=== PATIENT | male | born 1945 | race Caucasian/White ===

== ENCOUNTER 2024-07-16 22:59 | Inpatient (IN) | payer MEDICARE ==
[~2024-07-16] VITALS: Ht 180.3 cm; Wt 115.2 kg
[2024-07-16] MEDS ORDERED: TEMAZEPAM 7.5 MG CAPSULE PO PRN (23:30)
[2024-07-16] MEDS ORDERED: LORAZEPAM 0.5 MG TABLET PO PRN (23:30)
[2024-07-16] MEDS ORDERED: MAGNESIUM HYDROXIDE 30 ML UDC PO PRN (23:30)
[2024-07-16] MEDS: BLOOD SUGAR DIAGNOSTIC 1 EACH STRIP IN ONE (23:45)
[2024-07-17 00:14] VITALS: BP 142/98; TEMP 98.2; O2SAT 95
[2024-07-17] MEDS ORDERED: ESCI5TAB PO (01:13)
[2024-07-17] MEDS ORDERED: ENOX40DI SQ (01:13)
[2024-07-17] MEDS ORDERED: ALLA266C2 TP (01:13)
[2024-07-17] MEDS ORDERED: AMOX500C2 PO (01:13)
[2024-07-17] MEDS ORDERED: CLON0.1T PO (01:13)
[2024-07-17] MEDS ORDERED: CLOT45CR33 TP (01:13)
[2024-07-17] MEDS ORDERED: AMOXICILLIN TRIHYDRATE 500 MG CAPSULE PO SCH (07:00)
[2024-07-17 07:44] LABS: ALBUMIN 3.3 g/dL (3.4-5.0); BILIRUBIN,TOTAL 0.4 mg/dL (0.2-1.0); CALCIUM, SERUM 9.6 mg/dL (8.5-10.1); CREATININE 1.4 mg/dL (0.6-1.3); POTASSIUM 3.7 mmol/L (3.5-5.1); TOTAL PROTEIN, SERUM 6.8 g/dL (6.4-8.2)
[2024-07-17 07:46] LABS: CHOLESTEROL 195 mg/dL (<200); HDL CHOLESTEROL 33 mg/dL (40-60); LDL 139 mg/dL (0-99); TRIGLYCERIDES 168 mg/dL (30-150)
[2024-07-17] MEDS: CLONIDINE HCL 0.1 MG TABLET PO PRN (07:56)
[2024-07-17 08:00] VITALS: BP 188/134; TEMP 97.9; O2SAT 95
[2024-07-17] MEDS ORDERED: CLOTRIMAZOLE TOP SCH (09:00)
[2024-07-17] MEDS ORDERED: VAG TOP SCH (09:00)
[2024-07-17] MEDS: ENOXAPARIN SODIUM 40 MG/0.4 ML DISP.SYRIN SQ SCH (10:07)
[2024-07-17] MEDS: AMOXICILLIN TRIHYDRATE 250 MG CAPSULE PO SCH (13:31)
[2024-07-17 16:00] VITALS: BP 119/98; TEMP 98; O2SAT 96
[2024-07-17 20:00] VITALS: BP 151/93; TEMP 98.3; O2SAT 96
[2024-07-18 08:00] VITALS: BP 133/109; TEMP 98; O2SAT 96
[2024-07-18] MEDS: ESCITALOPRAM OXALATE (10 MG) 10 MG TABLET PO SCH (08:49)
[2024-07-18 16:00] VITALS: BP 122/100; TEMP 97.9; O2SAT 96
[2024-07-18] MEDS: LORAZEPAM 0.5 MG TABLET PO PRN (18:54)
[2024-07-18 19:54] VITALS: BP 137/90; TEMP 98.2; O2SAT 96
[2024-07-18] MEDS: DIVALPROEX SODIUM 125 MG TABLET.DR PO SCH (20:03)
[2024-07-19 07:04] LABS: BASOPHILS # (AUTO) 0.1 K/uL (0.0-0.2); BASOPHILS % (AUTO) 0.7 % (0.0-2.0); EOSINOPHILS # (AUTO) 0.1 K/uL (0.0-0.7); EOSINOPHILS % (AUTO) 0.7 % (0.0-6.0); HEMATOCRIT 43 % (39-51); HEMOGLOBIN 14.5 g/dL (13.5-17.5); LYMPHOCYTES # (AUTO) 1.5 K/uL (0.8-4.8); LYMPHOCYTES % (AUTO) 10.1 % (20.0-44.0); MEAN CORPUSCULAR HEMOGLOBIN 33 PG (26.0-33.0); MEAN CORPUSCULAR HGB CONC 34 g/dl (31.0-36.0); MEAN CORPUSCULAR VOLUME 98 fL (80-96); MONOCYTES # (AUTO) 1.7 K/uL (0.1-1.30); NEUTROPHILS # (AUTO) 11.7 K/uL (1.8-8.9); NEUTROPHILS % (AUTO) 77.5 % (43.0-81.0); PLATELET COUNT (AUTO) 280 K/uL (150-450); RED BLOOD CELL COUNT(AUTO) 4.39 MIL/uL (4.5-6.0); RED CELL DISTRIBUTION WIDTH 13.7 % (11.5-15.0)
[2024-07-19 08:00] VITALS: BP 168/95; TEMP 98.9; O2SAT 94
[2024-07-19 15:12] LABS: APPEARANCE,URINE CLOUDY (CLEAR); BILIRUBIN,URINE NEGATIVE (NEGATIVE); BLOOD, URINE NEGATIVE Ery/uL (NEGATIVE); COLOR,URINE YELLOW (YELLOW); CREATININE, URINE 170.1 MG/DL (30.0-125.0); KETONES,URINE NEGATIVE (NEGATIVE); LEUKOCYTE ESTERASE ,URINE NEGATIVE (NEGATIVE); NITRITE, URINE NEGATIVE (NEGATIVE); PH,URINE 5.5 (5.0-8.0); PROTEIN,URINE 1+ mg/dl (NEGATIVE); UGLUCOSE NEGATIVE (NEGATIVE); URINE TOTAL PROTEIN 65.7 mg/dL (0-11.9); UROBILINOGEN,URINE 0.2 EU/dL (0.2)
[2024-07-19 15:45] LABS: ADD URINE CULTURE NO; BACTERIA,URINE None seen /HPF (None Seen); RBC,URINE 0-2 /HPF (0-2); WBC,URINE 0-2 /HPF (0-3)
[2024-07-19 15:46] LABS: SQUAMOUS EPITHELIAL CELL,UR 0-2 /HPF (None Seen); URIC ACID CRYSTALS,URINE Moderate /HPF (None Seen); URINE AMORPHOUS URATE Moderate /HPF (None Seen)
[2024-07-19 16:00] VITALS: BP 198/88; TEMP 97.9; O2SAT 96
[2024-07-19 16:41] LABS: EOSINOPHIL,URINE None Seen
[2024-07-19 20:28] VITALS: BP 145/99; TEMP 98.1; O2SAT 96
[2024-07-20 08:00] VITALS: BP 150/99; TEMP 97.7; O2SAT 94
[2024-07-20 16:00] VITALS: BP 181/93; TEMP 97.9; O2SAT 95
[2024-07-20] MEDS ORDERED: VALS1TAB7 PO (17:19)
[2024-07-20] MEDS ORDERED: TERA5CAP4 PO (17:19)
[2024-07-20] MEDS ORDERED: ATOR40TA PO (17:19)
[2024-07-20] MEDS ORDERED: ASCO100058 PO (17:19)
[2024-07-20] MEDS ORDERED: CHOL500062 PO (17:19)
[2024-07-20] MEDS ORDERED: FERR-68 PO (17:19)
[2024-07-20] MEDS ORDERED: BISO1TAB35 PO (17:19)
[2024-07-20] MEDS ORDERED: ZINC50TA69 PO (17:19)
[2024-07-20] MEDS ORDERED: ACYC400T19 PO (17:19)
[2024-07-20 20:56] VITALS: BP 154/98; TEMP 98; O2SAT 96
[2024-07-20] MEDS: ACYCLOVIR 200 MG CAPSULE PO SCH (21:00)
[2024-07-20] MEDS: FERROUS SULFATE (325 MG) 325 MG/TAB TABLET PO SCH (21:01)
[2024-07-20] MEDS: ATORVASTATIN 40 MG TABLET PO SCH (21:01)
[2024-07-21] MEDS: CHOLECALCIFEROL 1,000 UNIT TABLET (VIT D3) PO SCH (08:14)
[2024-07-21] MEDS: ASCORBIC ACID 500 MG TABLET PO SCH (08:14)
[2024-07-21] MEDS: ZINC SULFATE 220 MG CAPSULE PO SCH (08:15)
[2024-07-21] MEDS ORDERED: VALSARTAN 40 MG TABLET PO SCH (12:00)
[2024-07-21] MEDS: DIVALPROEX SODIUM 125 MG TABLET.DR PO SCH (13:07)
[2024-07-21 16:00] VITALS: BP 116/86; TEMP 97.8; O2SAT 97
[2024-07-21 19:14] LABS: ALBUMIN 2.9 g/dL (3.4-5.0); BILIRUBIN,TOTAL 0.3 mg/dL (0.2-1.0); CREATININE 1.6 mg/dL (0.6-1.3); MAGNESIUM 2.3 mg/dL (1.8-2.4); PHOSPHORUS 3.7 mg/dL (2.5-4.9); POTASSIUM 3.8 mmol/L (3.5-5.1); TOTAL PROTEIN, SERUM 6.3 g/dL (6.4-8.2)
[2024-07-21 20:24] LABS: BASOPHILS # (AUTO) 0.2 K/uL (0.0-0.2); BASOPHILS % (AUTO) 1.2 % (0.0-2.0); EOSINOPHILS # (AUTO) 0.1 K/uL (0.0-0.7); EOSINOPHILS % (AUTO) 0.6 % (0.0-6.0); HEMATOCRIT 42 % (39-51); HEMOGLOBIN 13.5 g/dL (13.5-17.5); LYMPHOCYTES # (AUTO) 2.2 K/uL (0.8-4.8); LYMPHOCYTES % (AUTO) 14.9 % (20.0-44.0); MEAN CORPUSCULAR HEMOGLOBIN 32 PG (26.0-33.0); MEAN CORPUSCULAR HGB CONC 32 g/dl (31.0-36.0); MEAN CORPUSCULAR VOLUME 98 fL (80-96); MONOCYTES # (AUTO) 2.1 K/uL (0.1-1.30); NEUTROPHILS # (AUTO) 10.4 K/uL (1.8-8.9); NEUTROPHILS % (AUTO) 69.3 % (43.0-81.0); RED BLOOD CELL COUNT(AUTO) 4.24 MIL/uL (4.5-6.0)
[2024-07-21 20:37] VITALS: BP 171/94; TEMP 97.9; O2SAT 96
[2024-07-21 20:50] LABS: PLATELET COUNT (AUTO) 248 K/uL (150-450)
[2024-07-21] MEDS: VALSARTAN 80 MG TABLET PO SCH (22:13)
[2024-07-22 08:00] VITALS: BP 162/72; TEMP 98.1; O2SAT 98
[2024-07-22] MEDS: ATENOLOL 25 MG TABLET PO SCH (10:12)
[2024-07-22] MEDS: HYDROCHLOROTHIAZIDE 25 MG TABLET PO SCH (10:15)
[2024-07-22 16:00] VITALS: BP 123/66; TEMP 97.9; O2SAT 98
[2024-07-22 20:00] VITALS: BP 123/52; TEMP 97.8; O2SAT 96
[2024-07-23 00:09] LABS: PTH, INTACT 30 pg/mL (15-65)
[2024-07-23 07:06] LABS: *SPE ALBUMIN 2.8 g/dL (2.9-4.4); *SPE ALPHA-1-GLOBULIN 0.3 g/dL (0.0-0.4); *SPE ALPHA-2-GLOBULIN 1.1 g/dL (0.4-1.0); *SPE BETA GLOBULIN 0.9 g/dL (0.7-1.3); *SPE GLOBULIN, TOTAL 2.9 g/dL (2.2-3.9); *SPE M-SPIKE Not Observed g/dL (Not Observed); *SPE PROTEIN TOTAL 5.7 g/dL (6.0-8.5); *SPEGAMMA GLOBULIN 0.5 g/dL (0.4-1.8)
[2024-07-23 08:00] VITALS: BP 136/50; TEMP 98.7; O2SAT 97
[2024-07-23 16:00] VITALS: BP 135/70; TEMP 97.7; O2SAT 98
[2024-07-23 20:00] VITALS: BP 143/55; TEMP 98.3; O2SAT 96
[2024-07-23] MEDS: QUETIAPINE FUMARATE 25 MG TABLET PO SCH (21:31)
[2024-07-24 08:00] VITALS: BP 151/69; TEMP 97.9; O2SAT 97
[2024-07-24] MEDS: QUETIAPINE FUMARATE 25 MG TABLET PO SCH (13:41)
[2024-07-24 16:00] VITALS: BP 152/70; TEMP 97.3; O2SAT 98
[2024-07-24] MEDS: ACETAMINOPHEN 325 MG TABLET PO PRN (16:21)
[2024-07-24] MEDS: MAG HYDROX/AL HYDROX/SIMETH 30 ML UDC PO PRN (16:21)
[2024-07-24 20:00] VITALS: BP 133/61; TEMP 97.8; O2SAT 96
[2024-07-24] MEDS: TEMAZEPAM 7.5 MG CAPSULE PO PRN (23:24)
[2024-07-25 08:00] VITALS: BP 149/71; TEMP 97.8; O2SAT 96
[2024-07-25] MEDS: CLOTRIMAZOLE 1% 15 GM TUBE TP SCH (10:22)
[2024-07-25 16:00] VITALS: BP 131/58; TEMP 97.8; O2SAT 95
[2024-07-25 20:00] VITALS: BP 157/61; TEMP 97.9; O2SAT 95
[2024-07-25] MEDS ORDERED: QUETIAPINE FUMARATE 25 MG TABLET PO SCH (21:00)
[2024-07-25] MEDS: QUETIAPINE FUMARATE 25 MG TABLET PO SCH (21:32)
[2024-07-26 08:00] VITALS: BP 172/75; TEMP 97.8; O2SAT 96
[2024-07-26] MEDS: QUETIAPINE FUMARATE 25 MG TABLET PO SCH (08:53)
[2024-07-26 16:00] VITALS: BP 164/74; TEMP 97.7; O2SAT 97
[2024-07-26 16:50] LABS: BASOPHILS # (AUTO) 0.1 K/uL (0.0-0.2); BASOPHILS % (AUTO) 0.6 % (0.0-2.0); EOSINOPHILS # (AUTO) 0.3 K/uL (0.0-0.7); EOSINOPHILS % (AUTO) 3.2 % (0.0-6.0); HEMATOCRIT 43 % (39-51); HEMOGLOBIN 13.8 g/dL (13.5-17.5); LYMPHOCYTES # (AUTO) 2.4 K/uL (0.8-4.8); LYMPHOCYTES % (AUTO) 28.5 % (20.0-44.0); MEAN CORPUSCULAR HEMOGLOBIN 32 PG (26.0-33.0); MEAN CORPUSCULAR HGB CONC 32 g/dl (31.0-36.0); MEAN CORPUSCULAR VOLUME 98 fL (80-96); MONOCYTES # (AUTO) 1.1 K/uL (0.1-1.30); MONOCYTES % (AUTO) 13.4 % (2.0-12.0); NEUTROPHILS # (AUTO) 4.7 K/uL (1.8-8.9); NEUTROPHILS % (AUTO) 54.3 % (43.0-81.0); PLATELET COUNT (AUTO) 189 K/uL (150-450); RED BLOOD CELL COUNT(AUTO) 4.35 MIL/uL (4.5-6.0); RED CELL DISTRIBUTION WIDTH 13.6 % (11.5-15.0); WHITE BLOOD COUNT (AUTO) 8.6 K/uL (4.3-11.0)
[2024-07-26 17:25] LABS: ALBUMIN 2.6 g/dL (3.4-5.0); BILIRUBIN,TOTAL 0.3 mg/dL (0.2-1.0); CREATININE 1.3 mg/dL (0.6-1.3); TOTAL PROTEIN, SERUM 6.1 g/dL (6.4-8.2)
[2024-07-26 20:34] VITALS: BP 144/65; TEMP 97.8; O2SAT 95
[2024-07-26] MEDS: risperiDONE 0.25 MG TABLET PO SCH (22:13)
[2024-07-27 08:00] VITALS: BP 158/76; TEMP 97.5; O2SAT 99
[2024-07-27] MEDS: risperiDONE 0.25 MG TABLET PO SCH (09:04)
[2024-07-27 16:00] VITALS: BP 147/87; TEMP 98.1; O2SAT 96
[2024-07-27 20:42] VITALS: BP 111/68; TEMP 97.7; O2SAT 98
[2024-07-28 08:00] VITALS: BP 160/80; TEMP 98; O2SAT 98
[2024-07-28 16:00] VITALS: BP 101/60; TEMP 98.1; O2SAT 97
[2024-07-28 20:32] VITALS: BP 126/88; TEMP 98.1; O2SAT 97
[2024-07-29 08:00] VITALS: BP 133/54; TEMP 98.7; O2SAT 96
[2024-07-29] MEDS: DIVALPROEX SODIUM 250 MG TABLET.DR PO SCH (13:21)
[2024-07-29 16:00] VITALS: BP 134/53; TEMP 98.7; O2SAT 98
[2024-07-29 20:16] VITALS: BP 142/56; TEMP 98.8; O2SAT 95
[2024-07-30 08:00] VITALS: BP 134/51; TEMP 98.7; O2SAT 96
[2024-07-30 10:48] VITALS: BP 134/51
[2024-07-30 14:16] VITALS: TEMP 98.7
== END 2024-07-30 14:35 | DRG 881 ==
LOC: GPS 22:59
PROVIDERS: ADMIT Psychiatry & Neurology Psychosomatic Medicine; ATTEND Internal Medicine
DX: F32.9 Major depressive disorder, single episode, unspecified (principal); N18.9 Chronic kidney disease, unspecified; N17.9 Acute kidney failure, unspecified; J69.0 Pneumonitis due to inhalation of food and vomit; N17.0 Acute kidney failure with tubular necrosis; G92.9 Unspecified toxic encephalopathy; E44.0 Moderate protein-calorie malnutrition; D68.59 Other primary thrombophilia; F29 Unspecified psychosis not due to a substance or known physiological condition; E78.5 Hyperlipidemia, unspecified; F39 Unspecified mood [affective] disorder; M89.8X9 Other specified disorders of bone, unspecified site; F41.1 Generalized anxiety disorder; I12.9 Hypertensive chronic kidney disease with stage 1 through stage 4 chronic kidney disease, or unspecified chronic kidney disease; Z68.35 Body mass index [BMI] 35.0-35.9, adult; E66.9 Obesity, unspecified; M16.12 Unilateral primary osteoarthritis, left hip; G89.29 Other chronic pain; E88.09 Other disorders of plasma-protein metabolism, not elsewhere classified; Z74.09 Other reduced mobility; E86.9 Volume depletion, unspecified; D72.829 Elevated white blood cell count, unspecified; Z79.899 Other long term (current) drug therapy; G31.84 Mild cognitive impairment of uncertain or unknown etiology; T50.901A Poisoning by unspecified drugs, medicaments and biological substances, accidental (unintentional), initial encounter; Y92.129 Unspecified place in nursing home as the place of occurrence of the external cause; R53.1 Weakness
CPT/HCPCS: 36415; 76770-TC; 80053-TC; 80061-TC; 80164-TC; 81001; 82550-TC; 82570-TC; 82962-TC; 83735-TC; 83970; 84100-TC; 84155; 84165; 84300-TC; 85025-TC; 97110-TC; 97116-TC; 97530-TC; J1650

== ENCOUNTER 2024-08-23 11:54 | Inpatient (IN) | payer MEDICARE ==
[~2024-08-23] VITALS: Ht 180.3 cm; Wt 104.3 kg
[~2024-08-23 11:54] MED LIST: ACYC400T19 PO; ALLA266C2 TP; AMOX500C2 PO; ASCO100058 PO; ATOR40TA PO; BISO1TAB35 PO; CHOL500062 PO; CLON0.1T PO; CLOT45CR33 TP; ENOX40DI SQ; ESCI5TAB PO; FERR-68 PO; TERA5CAP4 PO; VALS1TAB7 PO; ZINC50TA69 PO
[2024-08-23 13:46] LABS: APPEARANCE,URINE CLEAR (CLEAR); BILIRUBIN,URINE NEGATIVE (NEGATIVE); BLOOD, URINE NEGATIVE Ery/uL (NEGATIVE); COLOR,URINE YELLOW (YELLOW); KETONES,URINE NEGATIVE (NEGATIVE); LEUKOCYTE ESTERASE ,URINE NEGATIVE (NEGATIVE); NITRITE, URINE NEGATIVE (NEGATIVE); PH,URINE 5.5 (5.0-8.0); PROTEIN,URINE TRACE mg/dl (NEGATIVE); UGLUCOSE NEGATIVE (NEGATIVE); UROBILINOGEN,URINE 0.2 EU/dL (0.2)
[2024-08-23] MEDS ORDERED: CRAN425C6 PO (13:46)
[2024-08-23] MEDS ORDERED: OMEG-167 PO (13:46)
[2024-08-23] MEDS ORDERED: RISP0.5T5 PO (13:46)
[2024-08-23] MEDS ORDERED: DOCU100T2 PO (13:46)
[2024-08-23] MEDS ORDERED: BISA10SU11 RC (13:46)
[2024-08-23] MEDS ORDERED: HYDR12.55 PO (13:46)
[2024-08-23] MEDS ORDERED: CHOL200059 PO (13:46)
[2024-08-23] MEDS ORDERED: ACET-868 PO (13:46)
[2024-08-23] MEDS ORDERED: DIVA-76 PO (13:46)
[2024-08-23] MEDS ORDERED: LORA-258 PO (13:46)
[2024-08-23] MEDS ORDERED: VALS160T2 PO (13:46)
[2024-08-23] MEDS ORDERED: MAGN400O6 PO (13:46)
[2024-08-23] MEDS ORDERED: ZINC220C6 PO (13:46)
[2024-08-23] MEDS ORDERED: ATEN100T PO (13:46)
[2024-08-23] MEDS ORDERED: NA P133E RC (13:46)
[2024-08-23] MEDS ORDERED: TEMA7.5C12 PO (13:46)
[2024-08-23 13:51] LABS: AMPHETAMINE, URINE NEGATIVE (NEGATIVE); BARBITURATE, URINE NEGATIVE (NEGATIVE); CANNABINOID, URINE NEGATIVE (NEGATIVE); COCCAINE, URINE NEGATIVE (NEGATIVE); OPIATE, URINE NEGATIVE (NEGATIVE); PHENCYCLIDINE SCREEN,URINE NEGATIVE (NEGATIVE)
[2024-08-23 13:54] LABS: BENZODIAZEPINE, URINE POSITIVE (NEGATIVE)
[2024-08-23 13:59] LABS: ADD URINE CULTURE NO; BACTERIA,URINE Few /HPF (None Seen); RBC,URINE 0-2 /HPF (0-2)
[2024-08-23 14:00] LABS: HYALINE CASTS, URINE Few /LPF (None Seen)
[2024-08-23] MEDS: CEFTRIAXONE 1GM BAG (ER ONLY) 50 ML IV ONE (14:00)
[2024-08-23] MEDS: AZITHROMYCIN 500 MG in IV D5W 250 ML IV ONE (15:00)
[2024-08-23 15:15] LABS: BASOPHILS # (AUTO) 0.1 K/uL (0.0-0.2); BASOPHILS % (AUTO) 1.1 % (0.0-2.0); EOSINOPHILS # (AUTO) 0.2 K/uL (0.0-0.7); EOSINOPHILS % (AUTO) 2.7 % (0.0-6.0); HEMATOCRIT 37 % (39-51); HEMOGLOBIN 12.5 g/dL (13.5-17.5); LYMPHOCYTES # (AUTO) 1.5 K/uL (0.8-4.8); LYMPHOCYTES % (AUTO) 18.4 % (20.0-44.0); MEAN CORPUSCULAR HEMOGLOBIN 32 PG (26.0-33.0); MEAN CORPUSCULAR HGB CONC 34 g/dl (31.0-36.0); MEAN CORPUSCULAR VOLUME 95 fL (80-96); MONOCYTES # (AUTO) 0.9 K/uL (0.1-1.30); MONOCYTES % (AUTO) 11.4 % (2.0-12.0); NEUTROPHILS # (AUTO) 5.5 K/uL (1.8-8.9); NEUTROPHILS % (AUTO) 66.4 % (43.0-81.0); PLATELET COUNT (AUTO) 181 K/uL (150-450); RED BLOOD CELL COUNT(AUTO) 3.86 MIL/uL (4.5-6.0); RED CELL DISTRIBUTION WIDTH 13.8 % (11.5-15.0); WHITE BLOOD COUNT (AUTO) 8.2 K/uL (4.3-11.0)
[2024-08-23 15:47] LABS: ALANINE AMINOTRANSFERASE 25 U/L (12-78); ALBUMIN 2.9 g/dL (3.4-5.0); ALKALINE PHOSPHATASE 87 U/L (46-116); ASPARTATE AMINOTRANSFERASE 29 U/L (15-37); BILIRUBIN,DIRECT 0.2 mg/dL (0.0-0.2); BILIRUBIN,TOTAL 0.4 mg/dL (0.2-1.0); CALCIUM, SERUM 9.3 mg/dL (8.5-10.1); CARBON DIOXIDE 32 mmol/L (21-32); CHLORIDE 109 mmol/L (98-107); CREATININE 2.3 mg/dL (0.6-1.3); GLUCOSE 95 mg/dL (74-106); POTASSIUM 4.4 mmol/L (3.5-5.1); SODIUM SERUM 146 mmol/L (136-145); TOTAL PROTEIN, SERUM 6.1 g/dL (6.4-8.2); UREA NITROGEN, BLOOD 47 mg/dL (7-18)
[2024-08-23 15:53] LABS: ALCOHOL, BLOOD < 3 mg/dL (0-10); NT-PRO BNP 1918 pg/mL (0-125)
[2024-08-23] MEDS ORDERED: TEMAZEPAM 7.5 MG CAPSULE PO PRN (16:00)
[2024-08-23] MEDS ORDERED: ACETAMINOPHEN 325 MG TABLET PO PRN (16:00)
[2024-08-23] MEDS ORDERED: MAG HYDROX/AL HYDROX/SIMETH 30 ML UDC PO PRN (16:00)
[2024-08-23] MEDS ORDERED: ONDANSETRON HCL/PF 4 MG/2 ML VIAL IVP PRN (16:00)
[2024-08-23] MEDS ORDERED: LORAZEPAM 0.5 MG TABLET PO PRN (16:00)
[2024-08-23] MEDS ORDERED: MAGNESIUM HYDROXIDE 30 ML UDC PO PRN (16:00)
[2024-08-23 16:21] LABS: SERUM AMMONIA 23 umol/L (11-32)
[2024-08-23 16:55] VITALS: BP 140/79; TEMP 97.5; O2SAT 98
[2024-08-23] MEDS: IV NS 0.9% 1,000 ML IV PRN (17:02)
[2024-08-23 17:23] LABS: INR 0.97 (0.91-1.10); PARTIAL THROMBOPLASTIN TIME 26.2 SEC (24.3-34.3); PROTHROMBIN TIME 10.3 SECS (9.2-11.1)
[2024-08-23] MEDS: risperiDONE 1 MG TABLET PO SCH (17:33)
[2024-08-23] MEDS: DIVALPROEX SODIUM 250 MG TABLET.DR PO SCH (17:33)
[2024-08-23] MEDS: FERROUS SULFATE (325 MG) 325 MG/TAB TABLET PO SCH (17:33)
[2024-08-23 20:00] VITALS: BP 136/90; TEMP 97.5; O2SAT 99
[2024-08-23] MEDS: ATORVASTATIN 40 MG TABLET PO SCH (21:26)
[2024-08-23] MEDS: risperiDONE 0.25 MG TABLET PO SCH (21:27)
[2024-08-24] VITALS: BP 127/92; TEMP 97.5; O2SAT 96
[2024-08-24 04:00] VITALS: BP 145/78; TEMP 97.7; O2SAT 95
[2024-08-24 08:00] VITALS: BP 144/85; TEMP 97.5; O2SAT 93
[2024-08-24] MEDS: HYDROCHLOROTHIAZIDE 25 MG TABLET PO SCH (10:01)
[2024-08-24] MEDS: LOSARTAN POTASSIUM 50 MG TABLET PO SCH (10:02)
[2024-08-24] MEDS: ZINC SULFATE 220 MG CAPSULE PO SCH (10:02)
[2024-08-24] MEDS: DOCUSATE SODIUM 100 MG CAPSULE PO SCH (10:02)
[2024-08-24] MEDS: ASCORBIC ACID 500 MG TABLET PO SCH (10:19)
[2024-08-24] MEDS: CHOLECALCIFEROL 1,000 UNIT TABLET (VIT D3) PO SCH (10:19)
[2024-08-24] MEDS: ATENOLOL 50 MG TABLET PO SCH (10:21)
[2024-08-24] MEDS: ENOXAPARIN SODIUM 30 MG/0.3 ML DISP.SYRIN SQ SCH (10:24)
[2024-08-24 12:30] LABS: BASOPHILS # (AUTO) 0.1 K/uL (0.0-0.2); BASOPHILS % (AUTO) 0.8 % (0.0-2.0); EOSINOPHILS # (AUTO) 0.3 K/uL (0.0-0.7); HEMATOCRIT 41 % (39-51); HEMOGLOBIN 13.5 g/dL (13.5-17.5); LYMPHOCYTES % (AUTO) 10.9 % (20.0-44.0); MEAN CORPUSCULAR HEMOGLOBIN 32 PG (26.0-33.0); MEAN CORPUSCULAR HGB CONC 33 g/dl (31.0-36.0); MEAN CORPUSCULAR VOLUME 99 fL (80-96); MONOCYTES # (AUTO) 0.9 K/uL (0.1-1.30); MONOCYTES % (AUTO) 10.1 % (2.0-12.0); NEUTROPHILS # (AUTO) 6.9 K/uL (1.8-8.9); NEUTROPHILS % (AUTO) 75.2 % (43.0-81.0); PLATELET COUNT (AUTO) 205 K/uL (150-450); RED BLOOD CELL COUNT(AUTO) 4.17 MIL/uL (4.5-6.0); RED CELL DISTRIBUTION WIDTH 13.7 % (11.5-15.0); WHITE BLOOD COUNT (AUTO) 9.2 K/uL (4.3-11.0)
[2024-08-24 12:37] LABS: CALCIUM, SERUM 9.3 mg/dL (8.5-10.1); MAGNESIUM 2.4 mg/dL (1.8-2.4); PHOSPHORUS 3.4 mg/dL (2.5-4.9); POTASSIUM 4.3 mmol/L (3.5-5.1)
[2024-08-24 12:49] LABS: THYROID STIMULATING HORMONE 2.22 uIU/mL (0.358-3.74)
[2024-08-24 16:00] VITALS: BP 161/92; TEMP 97.7; O2SAT 100
[2024-08-24 20:00] VITALS: BP 159/81; TEMP 97.5; O2SAT 95
[2024-08-25] VITALS: BP 166/85; TEMP 98.4; O2SAT 100
[2024-08-25] MEDS: ACETAMINOPHEN 325 MG TABLET PO PRN (00:15)
[2024-08-25 04:00] VITALS: BP 144/74; TEMP 97.7; O2SAT 98
[2024-08-25 08:47] VITALS: BP 154/88; TEMP 97.8; O2SAT 98
[2024-08-25 15:35] LABS: BASOPHILS # (AUTO) 0.1 K/uL (0.0-0.2); BASOPHILS % (AUTO) 1.2 % (0.0-2.0); EOSINOPHILS # (AUTO) 0.4 K/uL (0.0-0.7); EOSINOPHILS % (AUTO) 4.4 % (0.0-6.0); HEMATOCRIT 36 % (39-51); HEMOGLOBIN 12.1 g/dL (13.5-17.5); LYMPHOCYTES # (AUTO) 1.9 K/uL (0.8-4.8); LYMPHOCYTES % (AUTO) 22.3 % (20.0-44.0); MEAN CORPUSCULAR HEMOGLOBIN 33 PG (26.0-33.0); MEAN CORPUSCULAR HGB CONC 34 g/dl (31.0-36.0); MEAN CORPUSCULAR VOLUME 95 fL (80-96); MONOCYTES # (AUTO) 1.2 K/uL (0.1-1.30); MONOCYTES % (AUTO) 13.6 % (2.0-12.0); NEUTROPHILS % (AUTO) 58.5 % (43.0-81.0); PLATELET COUNT (AUTO) 210 K/uL (150-450); RED BLOOD CELL COUNT(AUTO) 3.73 MIL/uL (4.5-6.0); RED CELL DISTRIBUTION WIDTH 13.4 % (11.5-15.0); WHITE BLOOD COUNT (AUTO) 8.6 K/uL (4.3-11.0)
[2024-08-25 16:04] LABS: CALCIUM, SERUM 9.4 mg/dL (8.5-10.1); POTASSIUM 5.7 mmol/L (3.5-5.1)
[2024-08-25 16:21] VITALS: BP 157/88; TEMP 97.8; O2SAT 98
[2024-08-25 20:00] VITALS: BP 158/116; TEMP 98.4; O2SAT 96
[2024-08-26 07:30] VITALS: BP 157/84; TEMP 97.7; O2SAT 99
[2024-08-26 11:37] LABS: CALCIUM, SERUM 9.2 mg/dL (8.5-10.1); CREATININE 1.8 mg/dL (0.6-1.3); MAGNESIUM 2.2 mg/dL (1.8-2.4); PHOSPHORUS 3.8 mg/dL (2.5-4.9); POTASSIUM 4.6 mmol/L (3.5-5.1)
[2024-08-26 12:19] LABS: BASOPHILS # (AUTO) 0.1 K/uL (0.0-0.2); BASOPHILS % (AUTO) 1.3 % (0.0-2.0); EOSINOPHILS # (AUTO) 0.3 K/uL (0.0-0.7); EOSINOPHILS % (AUTO) 2.6 % (0.0-6.0); HEMATOCRIT 39 % (39-51); HEMOGLOBIN 12.6 g/dL (13.5-17.5); LYMPHOCYTES # (AUTO) 1.6 K/uL (0.8-4.8); LYMPHOCYTES % (AUTO) 16.1 % (20.0-44.0); MEAN CORPUSCULAR HEMOGLOBIN 32 PG (26.0-33.0); MEAN CORPUSCULAR HGB CONC 33 g/dl (31.0-36.0); MEAN CORPUSCULAR VOLUME 97 fL (80-96); MONOCYTES # (AUTO) 1.1 K/uL (0.1-1.30); MONOCYTES % (AUTO) 11.4 % (2.0-12.0); NEUTROPHILS # (AUTO) 6.7 K/uL (1.8-8.9); NEUTROPHILS % (AUTO) 68.6 % (43.0-81.0); PLATELET COUNT (AUTO) 220 K/uL (150-450); RED BLOOD CELL COUNT(AUTO) 3.95 MIL/uL (4.5-6.0); WHITE BLOOD COUNT (AUTO) 9.7 K/uL (4.3-11.0)
[2024-08-26 12:21] LABS: ABG BASE EXCESS 0.2 mmol/L (-2.0-3.0); ABG OXYGEN SATURATION 96.9 % (94.0-98.0); ABG PCO2 38.4 mmHg (35.0-48.0); ABG PH 7.422 (7.350-7.450); ABG PO2 96.2 mmHg (83.0-108.0); ABG TOTAL HEMOGLOBIN 12.8 G/dL (13.5-17.5); COHb 0.3 % (0.5-1.5); O2Hb 96.6 % (94.0-97.0); SITE, ABG RIGHT RADIAL
[2024-08-26] MEDS: IV D5W 1,000 ML IV ONE (14:19)
[2024-08-26 20:00] VITALS: BP 149/75; TEMP 97.5; O2SAT 98
[2024-08-26 21:06] LABS: FOLIC ACID 8.5 ng/mL (>3.0)
[2024-08-27 07:17] LABS: BASOPHILS # (AUTO) 0.1 K/uL (0.0-0.2); EOSINOPHILS # (AUTO) 0.4 K/uL (0.0-0.7); EOSINOPHILS % (AUTO) 4.5 % (0.0-6.0); HEMATOCRIT 36 % (39-51); HEMOGLOBIN 12.1 g/dL (13.5-17.5); LYMPHOCYTES # (AUTO) 1.8 K/uL (0.8-4.8); LYMPHOCYTES % (AUTO) 20.1 % (20.0-44.0); MEAN CORPUSCULAR HEMOGLOBIN 32 PG (26.0-33.0); MEAN CORPUSCULAR HGB CONC 34 g/dl (31.0-36.0); MEAN CORPUSCULAR VOLUME 95 fL (80-96); MONOCYTES # (AUTO) 1.1 K/uL (0.1-1.30); MONOCYTES % (AUTO) 12.1 % (2.0-12.0); NEUTROPHILS # (AUTO) 5.5 K/uL (1.8-8.9); NEUTROPHILS % (AUTO) 62.3 % (43.0-81.0); PLATELET COUNT (AUTO) 229 K/uL (150-450); RED BLOOD CELL COUNT(AUTO) 3.76 MIL/uL (4.5-6.0); RED CELL DISTRIBUTION WIDTH 13.6 % (11.5-15.0); WHITE BLOOD COUNT (AUTO) 8.8 K/uL (4.3-11.0)
[2024-08-27 07:21] LABS: CALCIUM, SERUM 9.6 mg/dL (8.5-10.1); CREATININE 1.7 mg/dL (0.6-1.3); MAGNESIUM 2.4 mg/dL (1.8-2.4); PHOSPHORUS 4.5 mg/dL (2.5-4.9); POTASSIUM 4.3 mmol/L (3.5-5.1)
[2024-08-27] MEDS: IV D5W 1,000 ML IV PRN (09:51)
[2024-08-27] MEDS ORDERED: IV D5W 1,000 ML IV ONE (10:00)
[2024-08-27 20:00] VITALS: BP 90/61; TEMP 98.4; O2SAT 98
[2024-08-28 07:03] LABS: BASOPHILS # (AUTO) 0.1 K/uL (0.0-0.2); EOSINOPHILS # (AUTO) 0.5 K/uL (0.0-0.7); EOSINOPHILS % (AUTO) 4.5 % (0.0-6.0); HEMATOCRIT 38 % (39-51); HEMOGLOBIN 12.3 g/dL (13.5-17.5); LYMPHOCYTES # (AUTO) 2.3 K/uL (0.8-4.8); LYMPHOCYTES % (AUTO) 21.6 % (20.0-44.0); MEAN CORPUSCULAR HEMOGLOBIN 31 PG (26.0-33.0); MEAN CORPUSCULAR HGB CONC 33 g/dl (31.0-36.0); MEAN CORPUSCULAR VOLUME 96 fL (80-96); MONOCYTES # (AUTO) 1.5 K/uL (0.1-1.30); MONOCYTES % (AUTO) 14.4 % (2.0-12.0); NEUTROPHILS # (AUTO) 6.2 K/uL (1.8-8.9); NEUTROPHILS % (AUTO) 58.5 % (43.0-81.0); PLATELET COUNT (AUTO) 220 K/uL (150-450); RED CELL DISTRIBUTION WIDTH 13.2 % (11.5-15.0); WHITE BLOOD COUNT (AUTO) 10.6 K/uL (4.3-11.0)
[2024-08-28 07:20] LABS: CALCIUM, SERUM 9.6 mg/dL (8.5-10.1); CREATININE 1.9 mg/dL (0.6-1.3); MAGNESIUM 2.5 mg/dL (1.8-2.4); PHOSPHORUS 3.9 mg/dL (2.5-4.9)
[2024-08-28 07:28] LABS: THYROID STIMULATING HORMONE 3.12 uIU/mL (0.358-3.74); URIC ACID 10.2 mg/dL (2.6-7.2)
[2024-08-28 08:00] VITALS: BP 132/57; TEMP 97.7; O2SAT 97
[2024-08-28 08:34] VITALS: BP 132/57
[2024-08-31 01:06] LABS: VITAMIN B1 THIAMINE,WB 98.7 nmol/L (66.5-200.0)
== END 2024-08-28 19:08 | DRG 682 ==
LOC: ER 11:56 → TELE 14:33 → MED 08-25 09:13
PROVIDERS: ADMIT Nurse Practitioner Acute Care; ATTEND Nurse Practitioner Acute Care
DX: N17.0 Acute kidney failure with tubular necrosis (principal); G93.41 Metabolic encephalopathy; E44.0 Moderate protein-calorie malnutrition; E87.0 Hyperosmolality and hypernatremia; E86.0 Dehydration; I13.10 Hypertensive heart and chronic kidney disease without heart failure, with stage 1 through stage 4 chronic kidney disease, or unspecified chronic kidney disease; N18.2 Chronic kidney disease, stage 2 (mild); M89.8X9 Other specified disorders of bone, unspecified site; M16.12 Unilateral primary osteoarthritis, left hip; R29.6 Repeated falls; Z91.81 History of falling; G89.29 Other chronic pain; Z79.899 Other long term (current) drug therapy; Z79.01 Long term (current) use of anticoagulants; E88.09 Other disorders of plasma-protein metabolism, not elsewhere classified; E78.5 Hyperlipidemia, unspecified; F39 Unspecified mood [affective] disorder; G31.84 Mild cognitive impairment of uncertain or unknown etiology; F41.9 Anxiety disorder, unspecified; R26.9 Unspecified abnormalities of gait and mobility; E66.9 Obesity, unspecified; Z68.35 Body mass index [BMI] 35.0-35.9, adult; D64.9 Anemia, unspecified; E87.5 Hyperkalemia
CPT/HCPCS: 36415; 36600; 70450-TC; 71045-TC; 73020; 73502; 80048-TC; 80076-TC; 81001; 82140-TC; 82607-TC; 82803-TC; 82962-TC; 83605-TC; 83735-TC; 83880; 83921; 84100-TC; 84425; 84443-TC; 84484-TC; 84550-TC; 85025-TC; 85730-TC; 86850-TC; 87040-TC; 93307-TC; 97110-TC; 97116-TC; 97530-TC; A4223; A4349; G0378; G0480; J0456; J0696; J1650; J7030; J7060; J7070

== ENCOUNTER 2024-08-30 01:22 | Inpatient (IN) | payer MEDICARE ==
[~2024-08-30] VITALS: Ht 180.3 cm; Wt 108.9 kg
[~2024-08-30 01:22] MED LIST changes: +ACET-868 PO; -ACYC400T19 PO; -ALLA266C2 TP; -AMOX500C2 PO; +ATEN100T PO; +BISA10SU11 RC; -BISO1TAB35 PO; +CHOL200059 PO; -CHOL500062 PO; -CLOT45CR33 TP; +CRAN425C6 PO; +DIVA-76 PO; +DOCU100T2 PO; -ESCI5TAB PO; +HYDR12.55 PO; +LORA-258 PO; +MAGN400O6 PO; +NA P133E RC; +OMEG-167 PO; +RISP0.5T5 PO; +TEMA7.5C12 PO; -TERA5CAP4 PO; +VALS160T2 PO; -VALS1TAB7 PO; +ZINC220C6 PO; -ZINC50TA69 PO
[2024-08-30 02:10] LABS: BASOPHILS # (AUTO) 0.1 K/uL (0.0-0.2); BASOPHILS % (AUTO) 0.7 % (0.0-2.0); EOSINOPHILS # (AUTO) 0.2 K/uL (0.0-0.7); EOSINOPHILS % (AUTO) 1.9 % (0.0-6.0); HEMATOCRIT 38 % (39-51); HEMOGLOBIN 12.4 g/dL (13.5-17.5); LYMPHOCYTES # (AUTO) 2.2 K/uL (0.8-4.8); LYMPHOCYTES % (AUTO) 17.6 % (20.0-44.0); MEAN CORPUSCULAR HEMOGLOBIN 32 PG (26.0-33.0); MEAN CORPUSCULAR HGB CONC 33 g/dl (31.0-36.0); MEAN CORPUSCULAR VOLUME 96 fL (80-96); MONOCYTES # (AUTO) 1.6 K/uL (0.1-1.30); MONOCYTES % (AUTO) 12.7 % (2.0-12.0); NEUTROPHILS # (AUTO) 8.4 K/uL (1.8-8.9); NEUTROPHILS % (AUTO) 67.1 % (43.0-81.0); PLATELET COUNT (AUTO) 242 K/uL (150-450); RED CELL DISTRIBUTION WIDTH 13.8 % (11.5-15.0); WHITE BLOOD COUNT (AUTO) 12.5 K/uL (4.3-11.0)
[2024-08-30 02:22] LABS: ACETAMINOPHEN < 10 ug/ml (10-30); ALANINE AMINOTRANSFERASE 20 U/L (12-78); ALBUMIN 3.2 g/dL (3.4-5.0); ALKALINE PHOSPHATASE 88 U/L (46-116); ASPARTATE AMINOTRANSFERASE 15 U/L (15-37); BILIRUBIN,DIRECT 0.1 mg/dL (0.0-0.2); BILIRUBIN,TOTAL 0.3 mg/dL (0.2-1.0); TOTAL PROTEIN, SERUM 6.6 g/dL (6.4-8.2)
[2024-08-30 02:26] LABS: ALCOHOL, BLOOD < 3 mg/dL (0-10); SALICYLATE 1.7 mg/dL (2.8-20.0)
[2024-08-30 02:29] LABS: CALCIUM, SERUM 9.8 mg/dL (8.5-10.1); CARBON DIOXIDE 29 mmol/L (21-32); CHLORIDE 107 mmol/L (98-107); CREATININE 3.1 mg/dL (0.6-1.3); GLUCOSE 120 mg/dL (74-106); POTASSIUM 4.4 mmol/L (3.5-5.1); SODIUM SERUM 145 mmol/L (136-145); UREA NITROGEN, BLOOD 53 mg/dL (7-18)
[2024-08-30] MEDS: IV NS 0.9% 1,000 ML BAG IV ONE (02:46)
[2024-08-30 02:51] LABS: APPEARANCE,URINE CLEAR (CLEAR); BILIRUBIN,URINE NEGATIVE (NEGATIVE); BLOOD, URINE NEGATIVE Ery/uL (NEGATIVE); COLOR,URINE YELLOW (YELLOW); KETONES,URINE NEGATIVE (NEGATIVE); LEUKOCYTE ESTERASE ,URINE NEGATIVE (NEGATIVE); NITRITE, URINE NEGATIVE (NEGATIVE); PH,URINE 5.5 (5.0-8.0); PROTEIN,URINE NEGATIVE (NEGATIVE); UGLUCOSE NEGATIVE (NEGATIVE); UROBILINOGEN,URINE 0.2 EU/dL (0.2)
[2024-08-30 03:02] LABS: AMPHETAMINE, URINE NEGATIVE (NEGATIVE); BARBITURATE, URINE NEGATIVE (NEGATIVE); BENZODIAZEPINE, URINE NEGATIVE (NEGATIVE); CANNABINOID, URINE NEGATIVE (NEGATIVE); COCCAINE, URINE NEGATIVE (NEGATIVE); OPIATE, URINE NEGATIVE (NEGATIVE); PHENCYCLIDINE SCREEN,URINE NEGATIVE (NEGATIVE)
[2024-08-30] MEDS ORDERED: ONDANSETRON HCL/PF 4 MG/2 ML VIAL IVP PRN (04:30)
[2024-08-30] MEDS ORDERED: MORPHINE SULFATE INJ 2 MG/ML DISP.SYRIN IV PRN (04:30)
[2024-08-30] MEDS ORDERED: ENOX30DI5 SQ (07:49)
[2024-08-30] MEDS: POLYETHYLENE GLYCOL 3350 17 GM POWD.PACK PO SCH (09:00)
[2024-08-30] MEDS ORDERED: HEPARIN SODIUM, PORCINE 5000 UNITS/1 ML VIAL SQ SCH (09:00)
[2024-08-30] MEDS ORDERED: risperiDONE 0.25 MG TABLET PO SCH (11:00)
[2024-08-30] MEDS: FERROUS SULFATE (325 MG) 325 MG/TAB TABLET PO SCH (11:00)
[2024-08-30] MEDS: DOCUSATE SODIUM LIQ 100 MG/10 ML UDC PO SCH (11:00)
[2024-08-30] MEDS: DIVALPROEX SODIUM 250 MG TABLET.DR PO SCH (11:00)
[2024-08-30] MEDS ORDERED: HEPARIN SODIUM, PORCINE 5000 UNITS/1 ML VIAL ONE (11:02)
[2024-08-30] MEDS ORDERED: DOCUSATE SODIUM 100 MG CAPSULE PO ONE (11:03)
[2024-08-30] MEDS ORDERED: DIVALPROEX SODIUM 250 MG TABLET.DR PO ONE (11:03)
[2024-08-30] MEDS ORDERED: FERROUS SULFATE (325 MG) 325 MG/TAB TABLET ONE (11:03)
[2024-08-30] MEDS: IV NS 0.9% 1,000 ML IV SCH (11:30)
[2024-08-30] MEDS: HEPARIN SODIUM, PORCINE 5000 UNITS/1 ML VIAL SQ SCH (11:30)
[2024-08-30] MEDS: CEFEPIME 1 GM in IV D5W 50 ML IV SCH (14:58)
[2024-08-30] MEDS ORDERED: Medication Not On Formulary EA (Omega-3 Fatty Acids/Fish Oil (Fish Oil 1,000 Mg Softgel) PO SCH (18:00)
[2024-08-30 20:00] VITALS: BP 110/83; TEMP 97.9; O2SAT 97
[2024-08-30] MEDS: ATORVASTATIN 40 MG TABLET PO SCH (21:10)
[2024-08-31] VITALS: BP 104/45; TEMP 97.8; O2SAT 95
[2024-08-31 00:24] VITALS: BP 104/45; TEMP 97.8; O2SAT 99
[2024-08-31 04:20] VITALS: BP 116/70; TEMP 97.5; O2SAT 98
[2024-08-31 07:37] LABS: CREATININE, URINE 176.4 MG/DL (30.0-125.0); URINE TOTAL PROTEIN 36.7 mg/dL (0-11.9)
[2024-08-31 08:00] VITALS: BP 108/66; TEMP 98.2; O2SAT 97
[2024-08-31] MEDS: ATENOLOL 50 MG TABLET PO SCH (08:24)
[2024-08-31 12:54] LABS: ALBUMIN 2.6 g/dL (3.4-5.0); BILIRUBIN,TOTAL 0.2 mg/dL (0.2-1.0); CALCIUM, SERUM 8.7 mg/dL (8.5-10.1); CREATININE 2.2 mg/dL (0.6-1.3); MAGNESIUM 2.4 mg/dL (1.8-2.4); PHOSPHORUS 3.6 mg/dL (2.5-4.9); POTASSIUM 3.8 mmol/L (3.5-5.1); TOTAL PROTEIN, SERUM 5.7 g/dL (6.4-8.2)
[2024-08-31 12:55] LABS: BASOPHILS # (AUTO) 0.1 K/uL (0.0-0.2); BASOPHILS % (AUTO) 0.9 % (0.0-2.0); EOSINOPHILS # (AUTO) 0.4 K/uL (0.0-0.7); EOSINOPHILS % (AUTO) 3.5 % (0.0-6.0); HEMATOCRIT 37 % (39-51); HEMOGLOBIN 12.1 g/dL (13.5-17.5); LYMPHOCYTES # (AUTO) 1.4 K/uL (0.8-4.8); LYMPHOCYTES % (AUTO) 13.6 % (20.0-44.0); MEAN CORPUSCULAR HEMOGLOBIN 32 PG (26.0-33.0); MEAN CORPUSCULAR HGB CONC 33 g/dl (31.0-36.0); MEAN CORPUSCULAR VOLUME 99 fL (80-96); MONOCYTES # (AUTO) 1.1 K/uL (0.1-1.30); MONOCYTES % (AUTO) 10.7 % (2.0-12.0); NEUTROPHILS # (AUTO) 7.4 K/uL (1.8-8.9); NEUTROPHILS % (AUTO) 71.3 % (43.0-81.0); PLATELET COUNT (AUTO) 217 K/uL (150-450); RED BLOOD CELL COUNT(AUTO) 3.75 MIL/uL (4.5-6.0); RED CELL DISTRIBUTION WIDTH 13.9 % (11.5-15.0); WHITE BLOOD COUNT (AUTO) 10.4 K/uL (4.3-11.0)
[2024-08-31 16:00] VITALS: BP 116/58; TEMP 98.3; O2SAT 99
[2024-08-31 20:00] VITALS: BP 137/63; TEMP 98.1; O2SAT 97
[2024-09-01] MEDS: LORAZEPAM 0.5 MG TABLET PO PRN (01:00)
[2024-09-01 07:00] VITALS: BP 150/70; TEMP 98.6; O2SAT 100
[2024-09-01 16:00] VITALS: BP 150/71; TEMP 98.6; O2SAT 96
[2024-09-01 16:02] LABS: BASOPHILS # (AUTO) 0.1 K/uL (0.0-0.2); BASOPHILS % (AUTO) 0.8 % (0.0-2.0); EOSINOPHILS # (AUTO) 0.3 K/uL (0.0-0.7); EOSINOPHILS % (AUTO) 3.7 % (0.0-6.0); HEMATOCRIT 33 % (39-51); HEMOGLOBIN 11.1 g/dL (13.5-17.5); LYMPHOCYTES # (AUTO) 1.4 K/uL (0.8-4.8); LYMPHOCYTES % (AUTO) 15.5 % (20.0-44.0); MEAN CORPUSCULAR HEMOGLOBIN 33 PG (26.0-33.0); MEAN CORPUSCULAR HGB CONC 34 g/dl (31.0-36.0); MEAN CORPUSCULAR VOLUME 97 fL (80-96); MONOCYTES # (AUTO) 1.2 K/uL (0.1-1.30); MONOCYTES % (AUTO) 13.5 % (2.0-12.0); NEUTROPHILS # (AUTO) 6.1 K/uL (1.8-8.9); NEUTROPHILS % (AUTO) 66.5 % (43.0-81.0); PLATELET COUNT (AUTO) 194 K/uL (150-450); RED BLOOD CELL COUNT(AUTO) 3.42 MIL/uL (4.5-6.0); RED CELL DISTRIBUTION WIDTH 13.9 % (11.5-15.0); WHITE BLOOD COUNT (AUTO) 9.1 K/uL (4.3-11.0)
[2024-09-01 17:09] LABS: ALBUMIN 2.3 g/dL (3.4-5.0); BILIRUBIN,TOTAL 0.2 mg/dL (0.2-1.0); CALCIUM, SERUM 8.7 mg/dL (8.5-10.1); CREATININE 1.8 mg/dL (0.6-1.3); MAGNESIUM 2.1 mg/dL (1.8-2.4); PHOSPHORUS 2.7 mg/dL (2.5-4.9); POTASSIUM 4.4 mmol/L (3.5-5.1); TOTAL PROTEIN, SERUM 5.4 g/dL (6.4-8.2)
[2024-09-01 20:00] VITALS: BP 129/102; TEMP 98.2; O2SAT 96; O2SAT 97
[2024-09-01] MEDS: ACETAMINOPHEN 325 MG TABLET PO PRN (21:44)
[2024-09-02] MEDS: IV NS 0.9% 1,000 ML IV PRN (00:09)
[2024-09-02 07:47] LABS: CALCIUM, SERUM 9.5 mg/dL (8.5-10.1); CREATININE 1.5 mg/dL (0.6-1.3); MAGNESIUM 2.4 mg/dL (1.8-2.4); PHOSPHORUS 2.5 mg/dL (2.5-4.9); POTASSIUM 3.9 mmol/L (3.5-5.1)
[2024-09-02 07:51] LABS: BASOPHILS # (AUTO) 0.1 K/uL (0.0-0.2); EOSINOPHILS # (AUTO) 0.4 K/uL (0.0-0.7); HEMATOCRIT 31 % (39-51); HEMOGLOBIN 10.6 g/dL (13.5-17.5); LYMPHOCYTES # (AUTO) 1.5 K/uL (0.8-4.8); LYMPHOCYTES % (AUTO) 18.3 % (20.0-44.0); MEAN CORPUSCULAR HEMOGLOBIN 32 PG (26.0-33.0); MEAN CORPUSCULAR HGB CONC 34 g/dl (31.0-36.0); MEAN CORPUSCULAR VOLUME 95 fL (80-96); MONOCYTES % (AUTO) 12.5 % (2.0-12.0); NEUTROPHILS # (AUTO) 5.2 K/uL (1.8-8.9); NEUTROPHILS % (AUTO) 63.2 % (43.0-81.0); PLATELET COUNT (AUTO) 185 K/uL (150-450); RED BLOOD CELL COUNT(AUTO) 3.31 MIL/uL (4.5-6.0); RED CELL DISTRIBUTION WIDTH 13.8 % (11.5-15.0); WHITE BLOOD COUNT (AUTO) 8.2 K/uL (4.3-11.0)
[2024-09-02 08:00] VITALS: BP 165/72; TEMP 98.2; O2SAT 99
[2024-09-02] MEDS: risperiDONE 0.25 MG TABLET PO SCH (08:46)
[2024-09-02] MEDS ORDERED: IV D5/0.45 NACL 1,000 ML IV SCH (11:00)
[2024-09-02] MEDS: IV D5W 500 ML IV ONE (11:46)
[2024-09-02 16:00] VITALS: BP 155/92; TEMP 97.9; O2SAT 96
[2024-09-02 20:00] VITALS: BP 152/88; TEMP 99; O2SAT 94
[2024-09-02 20:28] VITALS: BP 152/88; TEMP 99; O2SAT 94
[2024-09-03 06:42] LABS: BASOPHILS # (AUTO) 0.1 K/uL (0.0-0.2); BASOPHILS % (AUTO) 0.8 % (0.0-2.0); EOSINOPHILS # (AUTO) 0.4 K/uL (0.0-0.7); HEMATOCRIT 33 % (39-51); HEMOGLOBIN 11.3 g/dL (13.5-17.5); LYMPHOCYTES # (AUTO) 1.5 K/uL (0.8-4.8); LYMPHOCYTES % (AUTO) 17.4 % (20.0-44.0); MEAN CORPUSCULAR HEMOGLOBIN 33 PG (26.0-33.0); MEAN CORPUSCULAR HGB CONC 34 g/dl (31.0-36.0); MEAN CORPUSCULAR VOLUME 96 fL (80-96); MONOCYTES # (AUTO) 1.3 K/uL (0.1-1.30); NEUTROPHILS # (AUTO) 5.3 K/uL (1.8-8.9); NEUTROPHILS % (AUTO) 61.8 % (43.0-81.0); PLATELET COUNT (AUTO) 189 K/uL (150-450); RED BLOOD CELL COUNT(AUTO) 3.48 MIL/uL (4.5-6.0); RED CELL DISTRIBUTION WIDTH 13.5 % (11.5-15.0); WHITE BLOOD COUNT (AUTO) 8.6 K/uL (4.3-11.0)
[2024-09-03 07:02] LABS: CREATININE 1.3 mg/dL (0.6-1.3); MAGNESIUM 2.1 mg/dL (1.8-2.4); PHOSPHORUS 2.5 mg/dL (2.5-4.9); POTASSIUM 3.9 mmol/L (3.5-5.1)
[2024-09-03] MEDS ORDERED: CEFE1FRO IV (09:45)
[2024-09-03] MEDS ORDERED: HYDR-4076 PO (14:28)
[2024-09-03] MEDS ORDERED: hydrALAZINE HCL IV 20 MG VIAL IV PRN (14:30)
[2024-09-03 14:31] VITALS: BP 176/68
[2024-09-03] MEDS: hydrALAZINE HCL IV 20 MG VIAL IV PRN (14:31)
== END 2024-09-03 15:10 | DRG 177 ==
LOC: ER 01:40 → TRANSITION 08:17 → TELE 12:14 → MED 15:36 → TELE 16:06 → MED 08-31 04:13
PROVIDERS: ADMIT Nurse Practitioner Acute Care; ATTEND Nurse Practitioner Acute Care
DX: J69.0 Pneumonitis due to inhalation of food and vomit (principal); N17.0 Acute kidney failure with tubular necrosis; E44.1 Mild protein-calorie malnutrition; N17.9 Acute kidney failure, unspecified; N18.4 Chronic kidney disease, stage 4 (severe); E87.0 Hyperosmolality and hypernatremia; M84.48XA Pathological fracture, other site, initial encounter for fracture; Z20.822 Contact with and (suspected) exposure to COVID-19; E78.00 Pure hypercholesterolemia, unspecified; E78.5 Hyperlipidemia, unspecified; I12.9 Hypertensive chronic kidney disease with stage 1 through stage 4 chronic kidney disease, or unspecified chronic kidney disease; G89.29 Other chronic pain; F41.9 Anxiety disorder, unspecified; F32.A Depression, unspecified; M89.8X9 Other specified disorders of bone, unspecified site; Z79.01 Long term (current) use of anticoagulants; Z79.899 Other long term (current) drug therapy; E88.09 Other disorders of plasma-protein metabolism, not elsewhere classified; D64.9 Anemia, unspecified; E86.9 Volume depletion, unspecified; E66.9 Obesity, unspecified; Z68.33 Body mass index [BMI] 33.0-33.9, adult; N28.89 Other specified disorders of kidney and ureter
CPT/HCPCS: 36415; 71045-TC; 80048-TC; 80053-TC; 80076-TC; 82570-TC; 82962-TC; 83735-TC; 83935-TC; 84100-TC; 84300-TC; 85025-TC; 92526; 92611-TC; 97110-TC; 97116-TC; 97530-TC; A4223; G0378; G0480; J0360; J0692; J1644; J3490; J7030; J7042; J7060